=== PATIENT | male | born 1965 | race African-American/Black ===

== ENCOUNTER 2025-03-21 08:29 | Inpatient (IN) | payer OTHER ==
[2025-03-21 09:12] VITALS: BMI 17.4
[2025-03-21] MEDS ORDERED: BISMUTH SUBSALICYLATE 262 MG/15 ML BTL PO PRN (09:41)
[2025-03-21] MEDS ORDERED: guaiFENesin 600 MG TABLET.ER (FP) PO PRN (09:41)
[2025-03-21] MEDS ORDERED: ONDANSETRON 4 MG TABLET PO PRN (09:41)
[2025-03-21] MEDS ORDERED: BENZOCAINE/MENTHOL (CHLORASEPTIC ) LOZENGE MM PRN (09:41)
[2025-03-21] MEDS ORDERED: LOPERAMIDE HCL 2 MG CAPSULE PO PRN (09:41)
[2025-03-21] MEDS ORDERED: POLYETHYLENE GLYCOL (HEALTHYLAX) 3350 17 GM PACKET PO PRN (09:41)
[2025-03-21] MEDS ORDERED: MAG HYDROX/AL HYDROX/SIMETH 30 ML UNIT-DOSE CUP PO PRN (09:41)
[2025-03-21] MEDS ORDERED: BENZONATATE 200 MG CAPSULE PO PRN (09:41)
[2025-03-21] MEDS ORDERED: MAGNESIUM HYDROX 2400MG/30ML ORAL SUSPENSION 30 ML CUP PO PRN (09:41)
[2025-03-21] MEDS ORDERED: DICYCLOMINE HCL 10 MG CAPSULE PO PRN (09:41)
[2025-03-21] MEDS ORDERED: ACETAMINOPHEN 325 MG TABLET (FP) PO PRN (09:41)
[2025-03-21] MEDS ORDERED: IBUPROFEN 400 MG TABLET (FP) PO PRN (09:41)
[2025-03-21] MEDS ORDERED: IBUPROFEN 600 MG TABLET (FP) PO PRN (09:41)
[2025-03-21] MEDS ORDERED: hydrOXYzine PAMOATE 25 MG CAPSULE (FP) PO PRN (09:41)
[2025-03-21] MEDS ORDERED: NALOXONE (NARCAN) HCL 4 MG/0.1 ML SPRAY NS PRN (09:41)
[2025-03-21] MEDS ORDERED: cloNIDine HCL 0.1 MG TABLET ONE (10:04)
[2025-03-21] MEDS ORDERED: methaDONE HCL 10 MG TABLET (FOR DETOX USE ONLY) ONE (10:04)
[2025-03-21] MEDS: PRENATAL VITAMINS W/ FOLIC ACID TABLET (FP) PO SCH (10:08)
[2025-03-21] MEDS: methaDONE HCL 10 MG TABLET PO ONE (10:08)
[2025-03-21] MEDS: cloNIDine HCL 0.1 MG TABLET PO SCH (10:08)
[2025-03-21] MEDS: NICOTINE 14 MG/24 HOURS TOPICAL PATCH TD SCH (10:23)
[2025-03-21] MEDS ORDERED: NICOTINE 14 MG/24 HOURS TOPICAL PATCH TD ONE (10:23)
[2025-03-21] MEDS: methaDONE HCL 10 MG TABLET PO PRN (17:49)
[2025-03-21] MEDS: THIAMINE 100 MG TABLET PO SCH (22:30)
[2025-03-21] MEDS: MELATONIN 5 MG TABLETS PO SCH (22:31)
[2025-03-22] MEDS: METHOCARBAMOL 500 MG TABLET PO PRN (10:30)
[2025-03-22] MEDS: methaDONE 40 MG, methaDONE 10 MG PO ONE (10:30)
[2025-03-22 10:46] LABS: POTASSIUM 4.2 mmol/L (3.5-5.1)
[2025-03-22 10:53] LABS: HEMATOCRIT 37.1 % (40.1-51.0); HEMOGLOBIN 11.6 g/dL (13.7-17.5); MCHC 31.3 g/dl (32.3-36.5); MEAN CELL VOLUME 90.9 fl (79.0-92.2); MEAN PLT VOLUME 9.6 fl (9.4-12.4); PLATELET COUNT 282 x10^3/uL (163-337); RDW 13.9 % (12.2-16.1)
[2025-03-22 11:04] LABS: ALBUMIN 3.2 g/dl (3.4-5.0)
[2025-03-22 11:05] LABS: BLOOD UREA NITROGEN 14.8 mg/dL (7-18); CALCIUM 9.1 mg/dL (8.5-10.1)
[2025-03-22 11:09] LABS: BILIRUBIN,TOTAL 0.4 mg/dL (0.2-1); TOT PROT 6.2 g/dl (6.4-8.2)
[2025-03-22] MEDS: MIRTAZAPINE 15 MG TABLET (FP) PO SCH (22:33)
[2025-03-23] MEDS ORDERED: cloNIDine HCL 0.1 MG TABLET PO PRN
[2025-03-23 07:27] VITALS: RESP 16
[2025-03-23 08:50] VITALS: BP 127/73; PULSE 68; TEMP 97.7
[2025-03-23] MEDS: methaDONE 40 MG, methaDONE 20 MG PO ONE (10:26)
[2025-03-24] MEDS ORDERED: methaDONE 40 MG, methaDONE 30 MG PO ONE (10:00)
[2025-03-25] MEDS ORDERED: methaDONE HCL 40 MG DISPERSABLE TABLET PO ONE (10:00)
[2025-03-26] MEDS ORDERED: methaDONE 80 MG, methaDONE 10 MG PO ONE (10:00)
== END 2025-03-23 11:58 | disposition left against medical advice (07) | DRG 770 ==
LOC: YASAS 08:29 → Y6N 10:25
PROVIDERS: ADMIT Allergy & Immunology; ATTEND Allergy & Immunology
PROC: HZ2ZZZZ Detoxification Services for Substance Abuse Treatment (ICD-10-PCS; principal; 2025-03-21)
DX: F11.23 Opioid dependence with withdrawal (principal); F14.20 Cocaine dependence, uncomplicated; F17.210 Nicotine dependence, cigarettes, uncomplicated; F19.282 Other psychoactive substance dependence with psychoactive substance-induced sleep disorder
CPT/HCPCS: 36415; 80053; 80305; 80307; 85027; 86780; 93005; 93010